=== PATIENT | female | born 1945 | race Caucasian/White ===

== ENCOUNTER → 2017-05-11 | Outpatient (CLI) | payer MEDICARE ==
[~2017-05-11] MED LIST: ASPI81 CHEW; CALA180T PO; MULT-65 PO
[2017-05-11 13:12] LABS: HEMATOCRIT 39.5 % (35.0-46.0); MEAN CELL VOLUME 94.2 FL (80.0-100.0); MEAN CORPUSCULAR HEMOGLOBIN 32.6 PG (27.0-34.0); MEAN CORPUSCULAR HGB CONC 34.6 % (32.0-36.0); PLATELET COUNT 191 TH/MM3 (150-450); RED CELL DISTRIBUTION WIDTH 13.2 % (11.6-17.2); REVIEW FLAG FINAL
[2017-05-11 13:37] LABS: ANION GAP 8 MEQ/L (5-15); AST (GOT) 27 U/L (15-37); BICARBONATE 28.1 MEQ/L (21.0-32.0); BLOOD UREA NITROGEN 5 MG/DL (7-18); CHLORIDE 100 MEQ/L (98-107); GLUCOSE,FASTING 81 MG/DL (74-99); POTASSIUM 4.4 MEQ/L (3.5-5.1); SODIUM (NA) 136 MEQ/L (136-145); URIC ACID 4.5 MG/DL (2.6-6.0)
[2017-05-11 13:46] LABS: ALKALINE PHOSPHATASE 57 U/L (45-117); ALT (GPT) 28 U/L (10-53); GLOMERULAR FILTRATION RATE 99 ML/MIN (>89); LDL CHOLESTEROL 162 MG/DL (0-99); LDL CHOLESTEROL DIRECT 164 MG/DL (0-99); TOTAL BILIRUBIN ADULT 0.4 MG/DL (0.2-1.0)
[2017-05-11 16:28] LABS: HEMOGLOBIN A1a 1.1 %; HEMOGLOBIN A1b 0.7 %; HEMOGLOBIN Ao 86.9 %; HEMOGLOBIN F 0.8 %; HEMOGLOBIN LA1C 1.8 %; HEMOGLOBIN P3 3.2 %
== END ==
LOC: PLAB 09:20
PROVIDERS: ATTEND Family Medicine
DX: R53.83 Other fatigue (principal); E78.2 Mixed hyperlipidemia; I10 Essential (primary) hypertension; R73.01 Impaired fasting glucose; M10.9 Gout, unspecified
CPT/HCPCS: 36415; 80053; 80061; 83036; 83721; 84443; 84550; 85027

== ENCOUNTER → 2017-08-12 | Outpatient (CLI) | payer MEDICARE | LOC: PLAB 13:20 | PROVIDERS: ATTEND Obstetrics & Gynecology | DX: Z80.41 Family history of malignant neoplasm of ovary (principal) | CPT/HCPCS: 36415; 86304 ==

== ENCOUNTER → 2017-11-09 | Outpatient (CLI) | payer MEDICARE ==
[2017-11-09 13:42] LABS: ALBUMIN 3.9 GM/DL (3.4-5.0); BICARBONATE 25.5 MEQ/L (21.0-32.0); CREATININE 0.63 MG/DL (0.50-1.00)
[2017-11-09 13:43] LABS: DIRECT BILIRUBIN ADULT 0.1 MG/DL (0.0-0.2)
[2017-11-09 13:46] LABS: INDIRECT BILIRUBIN 0.3 MG/DL (0.0-0.8); TOTAL BILIRUBIN ADULT 0.4 MG/DL (0.2-1.0); TOTAL PROTEIN 7.3 GM/DL (6.4-8.2)
[2017-11-09 16:29] LABS: HEMOGLOBIN 12.5 GM/DL (11.6-15.3); MEAN CELL VOLUME 96.6 FL (80.0-100.0); MEAN CORPUSCULAR HEMOGLOBIN 32.6 PG (27.0-34.0); MEAN CORPUSCULAR HGB CONC 33.7 % (32.0-36.0); MEAN PLATELET VOLUME 7.2 FL (7.0-11.0); PLATELET COUNT 243 TH/MM3 (150-450); RED BLOOD COUNT 3.83 MIL/MM3 (4.00-5.30); RED CELL DISTRIBUTION WIDTH 13.1 % (11.6-17.2); WHITE BLOOD COUNT 6.7 TH/MM3 (4.0-11.0)
== END ==
LOC: PLAB 09:34
PROVIDERS: ATTEND Family Medicine
DX: R53.83 Other fatigue (principal); I10 Essential (primary) hypertension
CPT/HCPCS: 36415; 80048; 80076; 85027

== ENCOUNTER → 2018-05-12 | Outpatient (CLI) | payer MEDICARE ==
[2018-05-12 14:23] LABS: HEMATOCRIT 38.5 % (35.0-46.0); HEMOGLOBIN 12.9 GM/DL (11.6-15.3); MEAN CELL VOLUME 96.9 FL (80.0-100.0); MEAN CORPUSCULAR HEMOGLOBIN 32.4 PG (27.0-34.0); MEAN CORPUSCULAR HGB CONC 33.4 % (32.0-36.0); MEAN PLATELET VOLUME 7.2 FL (7.0-11.0); PLATELET COUNT 173 TH/MM3 (150-450); RED BLOOD COUNT 3.97 MIL/MM3 (4.00-5.30); RED CELL DISTRIBUTION WIDTH 13.3 % (11.6-17.2); WHITE BLOOD COUNT 4.7 TH/MM3 (4.0-11.0)
[2018-05-12 14:43] LABS: ALBUMIN 3.9 GM/DL (3.4-5.0); AST (GOT) 29 U/L (15-37); BICARBONATE 23.4 MEQ/L (21.0-32.0); BLOOD UREA NITROGEN 6 MG/DL (7-18); CALCIUM 9.1 MG/DL (8.5-10.1); CHLORIDE 101 MEQ/L (98-107); CHOLESTEROL 272 MG/DL (120-200); CREATININE 0.64 MG/DL (0.50-1.00); GLOMERULAR FILTRATION RATE 91 ML/MIN (>89); GLUCOSE,FASTING 84 MG/DL (74-99); SODIUM (NA) 136 MEQ/L (136-145)
[2018-05-12 14:50] LABS: ALKALINE PHOSPHATASE 48 U/L (45-117); ALT (GPT) 31 U/L (10-53); CHOLESTEROL/ HDL RATIO 2.66 RATIO; HDL CHOLESTEROL 102.2 MG/DL (40.0-60.0); LDL CHOLESTEROL 153 MG/DL (0-99); LDL CHOLESTEROL DIRECT 155 MG/DL (0-99); TOTAL BILIRUBIN ADULT 0.4 MG/DL (0.2-1.0); TOTAL PROTEIN 7.2 GM/DL (6.4-8.2); TRIGLYCERIDES 84 MG/DL (42-150)
[2018-05-12 17:24] LABS: HEMOGLOBIN A1C 4.8 % (4.3-6.0)
== END ==
LOC: PLAB 09:29
PROVIDERS: ATTEND Family Medicine
DX: E78.2 Mixed hyperlipidemia (principal); I10 Essential (primary) hypertension; R73.01 Impaired fasting glucose
CPT/HCPCS: 36415; 80053; 80061; 83036; 83721; 85027